=== PATIENT | female | born 1970 | race American Indian/Alaskan Native ===

== ENCOUNTER 2021-04-08 08:55 | Emergency (ER) | payer MEDICARE ==
--- NOTE | 2021-04-08 10:41 | Emergency Department Report ---
- General Chief complaint: High BP Stated complaint: BLOOD PRESSURE/ RASH Time Seen by Provider: 04/08/21 10:05 Source: patient Mode of arrival: Ambulatory Limitations: No Limitations - History of Present Illness Initial comments: Patient is a 50-year-old female presents emergency room with complaints of a rash to the back that began 4 days ago. She has associated itching and burning and tingling sensation. She states that the rash is painful. She denies any drainage, fever, chills, vomiting, diarrhea. Patient states that she was also concerned about her blood pressure. She states that her professional security officer changed her metoprolol to nifedipine approximately 2 weeks ago. she states that she has a follow-up appointment to reassess her blood pressure with her professional security officer. Patient showed me her blood pressure readings typically her readings are between 128 and 150 systolic. She had one blood pressure reading of 180 systolic a few days ago. She denies any symptoms related to her blood pressure. She has an allergy to morphine. - Related Data Previous Rx's Medication Instructions Recorded Last Taken Type Aspirin EC [Ecotrin] 325 mg PO QDAY tablet 03/02/17 Unknown Rx AtorvaSTATin [Lipitor] 80 mg PO QHS #30 tablet 03/02/17 Unknown Rx Famotidine [Pepcid] 20 mg PO DAILY #30 tablet 03/02/17 Unknown Rx Prasugrel [Effient] 10 mg PO QDAY #30 tablet 03/02/17 Unknown Rx carvediloL [Coreg] 3.125 mg PO BID #60 tablet 03/02/17 Unknown Rx lisinopriL [Zestril TAB] 2.5 mg PO QDAY #30 tablet 03/02/17 Unknown Rx Lidocaine [Lidocaine GEL] 1 applicatio TP TID PRN #30 04/08/21 Unknown Rx gel..gram. Valacyclovir HCl [Valacyclovir] 1,000 mg PO TID 7 Days #21 tablet 04/08/21 Unknown Rx traMADoL [Ultram 50 MG tab] 50 mg PO Q6HR PRN #12 tablet 04/08/21 Unknown Rx Allergies Allergy/AdvReac Type Severity Reaction Status Date / Time egg AdvReac Vomiting Verified 04/08/21 09:03 morphine Allergy Itching Uncoded 02/27/17 23:18 Abscess Boil HPI - HPI Chief Complaint: High BP Stated Complaint: BLOOD PRESSURE/ RASH Time Seen by Provider: 04/08/21 10:05 Home Medications: Previous Rx's Medication Instructions Recorded Last Taken Type Aspirin EC [Ecotrin] 325 mg PO QDAY tablet 03/02/17 Unknown Rx AtorvaSTATin [Lipitor] 80 mg PO QHS #30 tablet 03/02/17 Unknown Rx Famotidine [Pepcid] 20 mg PO DAILY #30 tablet 03/02/17 Unknown Rx Prasugrel [Effient] 10 mg PO QDAY #30 tablet 03/02/17 Unknown Rx carvediloL [Coreg] 3.125 mg PO BID #60 tablet 03/02/17 Unknown Rx lisinopriL [Zestril TAB] 2.5 mg PO QDAY #30 tablet 03/02/17 Unknown Rx Lidocaine [Lidocaine GEL] 1 applicatio TP TID PRN #30 04/08/21 Unknown Rx gel..gram. Valacyclovir HCl [Valacyclovir] 1,000 mg PO TID 7 Days #21 tablet 04/08/21 Unkn own Rx traMADoL [Ultram 50 MG tab] 50 mg PO Q6HR PRN #12 tablet 04/08/21 Unknown Rx Allergies/Adverse Reactions: Allergies Allergy/AdvReac Type Severity Reaction Status Date / Time egg AdvReac Vomiting Verified 04/08/21 09:03 morphine Allergy Itching Uncoded 02/27/17 23:18 ED Review of Systems ROS: Stated complaint: BLOOD PRESSURE/ RASH Other details as noted in HPI Comment: All other systems reviewed and negative ED Past Medical Hx - Past Medical History Hx Hypertension: Yes Hx Heart Attack/AMI: Yes (This admission STEMI, and 2016 NH with stent) Additional medical history: lymphoma, - Surgical History Hx Coronary Stent: Yes - Social History Smoking Status: Never Smoker Substance Use Type: Alcohol - Medications Home Medications: Home Medications Medication Instructions Recorded Confirmed Last Taken Type Aspirin EC [Ecotrin] 325 mg PO QDAY tablet 03/02/17 Unknown Rx AtorvaSTATin [Lipitor] 80 mg PO QHS #30 tablet 03/02/17 Unknown Rx Famotidine [Pepcid] 20 mg PO DAILY #30 tablet 03/02/17 Unknown Rx Prasugrel [Effient] 10 mg PO QDAY #30 tablet 03/02/17 Unknown Rx carvediloL [Coreg] 3.125 mg PO BID #60 tablet 03/02/17 Unknown Rx lisinopriL [Zestril TAB] 2.5 mg PO QDAY #30 tablet 03/02/17 Unknown Rx Lidocaine [Lidocaine GEL] 1 applicatio TP TID PRN #30 04/08/21 Unknown Rx gel..gram. Valacyclovir HCl [Valacyclovir] 1,000 mg PO TID 7 Days #21 tablet 04/08/21 Unknown Rx traMADoL [Ultram 50 MG tab] 50 mg PO Q6HR PRN #12 tablet 04/08/21 Unknown Rx ED Physical Exam - General Limitations: No Limitations General appearance: alert, in no apparent distress - Head Head exam: Present: atraumatic, normocephalic - Eye Eye exam: Present: normal appearance - ENT ENT exam: Present: mucous membranes moist - Neurological Exam Neurological exam: Present: alert, oriented X3 - Psychiatric Psychiatric exam: Present: normal affect, normal mood - Skin Skin exam: Present: warm, dry, other (there is a maculopapular rash with small vesicles present to the right upper back in a dermatomal distribution ) ED Course Vital Signs 04/08/21 04/08/21 09:05 11:04 Temperature 98.6 F Pulse Rate 70 91 H Respiratory 18 19 Rate Blood Pressure 128/80 Blood Pressure 124/85 [Left] O2 Sat by Pulse 98 100 Oximetry ED Medical Decision Making - Lab Data Vital Signs 04/08/21 04/08/21 09:05 11:04 Temperature 98.6 F Pulse Rate 70 91 H Respiratory 18 19 Rate Blood Pressure 128/80 Blood Pressure 124/85 [Left] O2 Sat by Pulse 98 100 Oximetry - Medical Decision Making Patient is a 50-year-old female presents emergency room with complaints of a rash to the back that began 4 days ago. She has associated itching and burning and tingling sensation. She states that the rash is painful. She denies any drainage, fever, chills, vomiting, diarrhea. Patient states that she was also concerned about her blood pressure. She states that her professional security officer changed her metoprolol to nifedipine approximately 2 weeks ago. she states that she has a follow-up appointment to reassess her blood pressure with her professional security officer. Patient showed me her blood pressure readings typically her readings are between 128 and 150 systolic. She had one blood pressure reading of 180 systolic a few days ago. She denies any symptoms related to her blood pressure. She has an allergy to morphine. vitals are normal. pts blood pressure is normal. on exam: there is a maculopapular rash with small vesicles present to the right upper back in a dermatomal distribution. Examination appears consistent with shingles rash. I advised patient that her examination is consistent with shingles. Patient then tells me that she went to her primary care doctor 2 days ago and was started on valacyclovir but states that she has been breaking the pills in half. I discussed with patient that she has to take a full tablet 3 times a day for a week. It appears patient is not properly taking her medication. Patient also written prescription for tramadol and lidocaine gel for pain. I advised patient Please use medication as prescribed. Follow-up with your primary care doctor. Please discuss with your primary care doctor the shingles vaccine. Follow-up with your professional security officer regarding your blood pressure, take your blood pressure twice a day and keep a blood pressure log, eat a low-sodium diet, incorporate 30-60 minutes daily exercise. Return to emergency room for any new or symptoms. Critical care attestation.: If time is entered above; I have spent that time in minutes in the direct care of this critically ill patient, excluding procedure time. ED Disposition Clinical Impression: Shingles Qualifiers: Herpes zoster complications: without complications Qualified Code(s): B02.9 - Zoster without complications Disposition: DC- TO HOME OR SELFCARE Is pt being admited?: No Does the pt Need Aspirin: No Condition: Stable Instructions: Shingles, [id number] Additional Instructions: Please use medication as prescribed. Follow-up with your primary care doctor. Please discuss with your primary care doctor the shingles vaccine. Follow-up with your professional security officer regarding your blood pressure, take your blood pressure twice a day and keep a blood pressure log, eat a low-sodium diet, incorporate 30-60 minutes daily exercise. Return to emergency room for any new or symptoms. Prescriptions: Lidocaine [Lidocaine GEL] 1 applicatio TP TID PRN #30 gel..gram. PRN Reason: pain traMADoL [Ultram 50 MG tab] 50 mg PO Q6HR PRN #12 tablet PRN Reason: Pain Valacyclovir HCl [Valacyclovir] 1,000 mg PO TID 7 Days #21 tablet Referrals: PRIMARY CARE, [Primary Care Provider] - 2-3 Days Time of Disposition: 10:42 Print Language: UKRAINIAN
[2021-04-08 11:04] VITALS: BP 124/85
== END 2021-04-08 11:06 | disposition home or self-care (01) ==
LOC: ED 08:55
DX: B02.9 Zoster without complications (principal); I10 Essential (primary) hypertension; Z98.890 Other specified postprocedural states; Z79.899 Other long term (current) drug therapy; Z88.8 Allergy status to other drugs, medicaments and biological substances; Z91.012 Allergy to eggs
CPT/HCPCS: 99282

== ENCOUNTER 2021-12-30 10:37 | Outpatient (CLI) | payer MEDICARE ==
--- NOTE | 2021-12-30 13:34 | Magnetic Resonance Report ---
MRI LUMBAR SPINE 12/30/2021 INDICATION / CLINICAL INFORMATION: M545 LOW BACK PAIN. COMPARISON: None available. FINDINGS: GENERAL OBSERVATIONS: Unenhanced MR images of the lumbar spine were obtained. There is a very subtle right convex scoliosis centered at the L3 level. There is no evidence of acute abnormality. [id number] ANALYSIS: L5-S1: Unremarkable. L4-5: Unremarkable. L3-4: Unremarkable. L2-3: Unremarkable. L1-2: Unremarkable. BONE MARROW: No significant abnormality SPINAL CORD/CAUDA EQUINA: Normal PARASPINAL SOFT TISSUES: No significant abnormality. IMPRESSION: Essentially negative unenhanced MRI of the lumbar spine. Signer Name: Pedro Cobos MD Signed: 12/30/2021 1:30 PM Workstation Name: [id number]
== END 2021-12-30 10:38 | disposition home or self-care (01) ==
LOC: MRI 10:37
PROVIDERS: ATTEND Internal Medicine
DX: M51.16 Intervertebral disc disorders with radiculopathy, lumbar region (principal)
CPT/HCPCS: 72148